=== PATIENT | male | born 1980 | race Caucasian/White ===

== ENCOUNTER → 2016-11-04 | Outpatient (CLI) | payer BC ==
[2014-04-19 12:30] VITALS: BP 136/65
[~2016-11-04] MED LIST: OXYC-323 PO; RANI300T3 PO; SERT25TA PO
--- NOTE | 2016-11-04 12:19 | KCIC ---
Two-view left calcaneus HISTORY: Left heel pain for 3 weeks. FINDINGS: No evidence of an acute fracture. Visualized joint spaces appear intact. No significant soft tissue abnormality. Minimal enthesophyte at the posterior calcaneus. IMPRESSION: No acute abnormality identified. Electronically signed by: Ciaran Gunn MD (11/04/2016 12:15 PM)
== END | disposition home or self-care (01) ==
LOC: KCIC 09:18
PROVIDERS: ATTEND Nurse Practitioner Family
DX: M79.672 Pain in left foot (principal)
CPT/HCPCS: 73650

== ENCOUNTER → 2017-06-17 | Outpatient (CLI) | payer BC | END | disposition home or self-care (01) | LOC: KCIC US 08:45 | DX: R10.9 Unspecified abdominal pain (principal) | CPT/HCPCS: 76700 ==